=== PATIENT | female | born 1975 ===

== ENCOUNTER 2021-04-11 07:45 | Inpatient (IN) | payer OTHER ==
[~2021-04-11] VITALS: Ht 167.6 cm; Wt 67.6 kg
[2021-04-11] MEDS ORDERED: LOSART PO (12:22)
[2021-04-16] MEDS ORDERED: COZAAR25 MG PO (07:56)
== END 2021-04-18 11:16 | disposition home or self-care (01) | DRG 743 ==
LOC: O/R 04-16 06:05 → SURH 04-16 07:00 → OB/GYN 04-16 13:50
PROVIDERS: ADMIT Obstetrics & Gynecology; ATTEND Obstetrics & Gynecology
PROC: 0UT70ZZ Resection of Bilateral Fallopian Tubes, Open Approach (ICD-10-PCS; 2021-04-16)
PROC: 0UT20ZZ Resection of Bilateral Ovaries, Open Approach (ICD-10-PCS; 2021-04-16)
PROC: 0DNW0ZZ Release Peritoneum, Open Approach (ICD-10-PCS; 2021-04-16)
PROC: 0UT90ZZ Resection of Uterus, Open Approach (ICD-10-PCS; principal; 2021-04-16 07:00)
DX: D25.1 Intramural leiomyoma of uterus (principal); D25.2 Subserosal leiomyoma of uterus; Z20.822 Contact with and (suspected) exposure to COVID-19; N72 Inflammatory disease of cervix uteri; N80.0 Endometriosis of uterus; N83.11 Corpus luteum cyst of right ovary